=== PATIENT | female | born 1980 | race Caucasian/White ===

== ENCOUNTER 2021-03-01 10:16 | Outpatient (CLI) | payer OTHER | END 2021-03-01 10:26 | disposition home or self-care (01) | LOC: SONOGRAMA 10:16 | PROVIDERS: ATTEND Pathology Anatomic Pathology & Clinical Pathology | DX: E04.8 Other specified nontoxic goiter (principal) ==

== ENCOUNTER 2022-08-12 09:30 | Outpatient (CLI) | payer OTHER | END 2022-08-12 09:57 | disposition home or self-care (01) | LOC: SONOGRAMA 09:30 | PROVIDERS: ATTEND Pathology Anatomic Pathology | DX: R22.1 Localized swelling, mass and lump, neck (principal) ==